=== PATIENT | male | born 1975 | race African-American/Black ===

== ENCOUNTER 2018-05-27 10:41 | Inpatient (IN) | payer MEDICAID ==
[~2018-05-27] VITALS: Ht 172.7 cm; Wt 64.4 kg
[2018-05-27] VITALS (18 sets, daily range): BP systolic 113–145; BP diastolic 65–95
[2018-05-27] MEDS ORDERED: ONDANSETRON HCL 4MG/2ML INJ IV STA (11:08)
[2018-05-27] MEDS ORDERED: SODIUM CHLORIDE 0.9% 1,000 ML IV ONE (11:08)
[2018-05-27] MEDS ORDERED: INSULIN REGULAR (HUMULIN R) UD 100 UNITS/ML SYR IV ONE (11:15)
[2018-05-27] MEDS ORDERED: INSULIN REGULAR (DRIP) 100 UNITS in SODIUM CHLORIDE 0.9% 100 ML IV ONE ×2 (11:15→11:45)
[2018-05-27 11:44] LABS: HEMATOCRIT. 51.9 % (42.0-52.0); HEMOGLOBIN. 16.7 g/dL (14.0-18.0); MEAN CORPUSCULAR HEMOGLOBIN 29.9 pg (28.0-32.0); MEAN CORPUSCULAR VOLUME 93.1 fL (80.0-94.0); MEAN PLATELET VOLUME 8.4 fl (7.4-10.4); PLATELET 290 x1000/uL (130-400); RED BLOOD CELL COUNT 5.57 mill/uL (4.7-6.1); RED CELL DISTRIBUTION WIDTH 15.9 % (11.6-14.6)
[2018-05-27] MEDS ORDERED: INSULIN REGULAR (HUMULIN R) 300UNITS/3ML IV ONE (11:45)
[2018-05-27 11:48] LABS: BG BASE EXCESS -22.1 mmol/L (-2.0-2.0); BG CARBOXYHEMOGLOBIN 0.6 % (0.5-1.5); BG DEOXYHEMOGLOBIN 2.1 % (0.0-5.0); BG FRACTION INSPIRED OXYGEN 21; BG HCO3 ACT 4.2 mmol/L (22.0-26.0); BG METHEMOGLOBIN 0.4 % (0.0-1.5); BG OXYGEN SATURATION 97.9 % (92.0-98.5); BG OXYHEMOGLOBIN 96.9 % (94.0-97.0); BG PCO2 12.7 mmHg (35.0-45.0); BG PH 7.141 (7.350-7.450); BG PO2 135.9 mmHg (75.0-100.0); BG SAMPLE SITE RIGHT RADIAL; BG TOTAL HEMOGLOBIN 15.6 g/dL (12.0-18.0); BG VENT MODE ROOM AIR
[2018-05-27 11:52] LABS: INR 1.1; PROTHROMBIN TIME 10.6 sec (9.1-11.1)
[2018-05-27 12:25] LABS: BETA HYDROXYBUTYRATE 12.3 mMol/L (0.0-0.3)
[2018-05-27 13:05] LABS: CLARITY URINE CLEAR (CLEAR); COLOR URINE YELLOW (YELLOW); KETONES URINE 4+ (NEGATIVE); LEUKOCYTE ESTERASE URINE NEGATIVE (NEGATIVE); NITRITE URINE NEGATIVE (NEGATIVE); OCCULT BLOOD URINE 2+ (NEGATIVE); PROTEIN URINE 1+ (NEGATIVE); SPECIFIC GRAVITY URINE 1.026 (1.005-1.030); UROBILINOGEN URINE 0.2 E.U./dL (0.2-1.0)
[2018-05-27 13:19] LABS: CHLORIDE 102 mEq/L (98-107)
[2018-05-27 13:54] LABS: PLATELET ESTIMATE NORMAL
[2018-05-27] MEDS: INSULIN REGULAR (DRIP) 100 UNITS in SODIUM CHLORIDE 0.9% 99 ML IV SCH ×2 (14:00→21:42)
[2018-05-27] MEDS ORDERED: DEXTROSE 50% WATER 50ML SYRINGE IV PRN ×2 (14:45)
[2018-05-27] MEDS ORDERED: ACETAMINOPHEN 650MG/20.3ML UDC PO PRN (14:45)
[2018-05-27] MEDS ORDERED: ONDANSETRON HCL 4MG/2ML INJ IV PRN (14:45)
[2018-05-27] MEDS: PANTOPRAZOLE SODIUM 40 MG/VIAL IV SCH (15:12)
[2018-05-27] MEDS: ENOXAPARIN 40MG/0.4ML SYR SUBCUT SCH (15:12)
[2018-05-27] MEDS: SODIUM CHLORIDE 0.9% 1,000 ML IV SCH ×2 (15:12→21:25)
[2018-05-27] MEDS ORDERED: MORPHINE SULFATE 4 MG/ML CPJ (NOT FOR IM USE) IV PRN (15:15)
[2018-05-27] MEDS: BLOOD SUGAR DIAGNOSTIC STRIP TEST SCH ×8 (16:00→23:00)
[2018-05-27] MEDS ORDERED: HYDROCODONE/ACETAMINOPHEN 5/325MG TABLET PO PRN (17:30)
[2018-05-27] MEDS: DEXT 5%/0.9% NACL 1,000 ML IV SCH ×2 (18:04→21:25)
[2018-05-27 19:56] LABS: CHLORIDE 113 mEq/L (98-107)
[2018-05-28] VITALS (26 sets, daily range): BP systolic 115–149; BP diastolic 63–119
[2018-05-28] MEDS: SODIUM CHLORIDE 0.9% 1,000 ML IV SCH ×2 (00:02→09:12)
[2018-05-28] MEDS: BLOOD SUGAR DIAGNOSTIC STRIP TEST SCH ×10 (00:21→09:00)
[2018-05-28] MEDS: DEXT 5%/0.9% NACL 1,000 ML IV SCH ×2 (04:05→06:29)
[2018-05-28 05:54] LABS: HEMATOCRIT 37.1 % (42.0-52.0); HEMOGLOBIN 12.3 g/dL (14.0-18.0); MEAN CORPUSCULAR HEMOGLOBIN 29.4 pg (28.0-32.0); MEAN CORPUSCULAR VOLUME 88.6 fL (80.0-94.0); PLATELET 173 x1000/uL (130-400); RED BLOOD CELL COUNT 4.19 mill/uL (4.7-6.1); RED CELL DISTRIBUTION WIDTH 14.9 % (11.6-14.6)
[2018-05-28 06:08] LABS: CHLORIDE 114 mEq/L (98-107)
[2018-05-28] MEDS: PANTOPRAZOLE SODIUM 40 MG/VIAL IV SCH (07:58)
[2018-05-28] MEDS: POTASSIUM-SODIUM PHOSPHATE POWDER PACKET PO SCH ×2 (09:11→12:41)
[2018-05-28] MEDS ORDERED: DEXTROSE 50% WATER 50ML SYRINGE IV PRN (09:30)
[2018-05-28] MEDS ORDERED: INSULIN GLARGINE UD 100 UNITS/ML SYR SUBCUT SCH (10:00)
[2018-05-28] MEDS ORDERED: BLOOD SUGAR DIAGNOSTIC STRIP TEST SCH (12:50)
[2018-05-28] MEDS ORDERED: INSULIN LISPRO 100 UNITS/ML SUBCUT SCH (13:20)
[2018-05-28] MEDS: ENOXAPARIN 40MG/0.4ML SYR SUBCUT SCH (14:40)
== END 2018-05-28 15:57 | disposition home or self-care (01) | DRG 420 ==
LOC: ER 10:41 → CVICU 12:31 → ENRESERV 13:08
PROVIDERS: ADMIT Hospitalist; ATTEND Hospitalist
DX: E10.10 Type 1 diabetes mellitus with ketoacidosis without coma (principal); F17.200 Nicotine dependence, unspecified, uncomplicated; R32 Unspecified urinary incontinence
CPT/HCPCS: 36415; 36600; 71045; 80048; 82010; 82375; 82805; 82962; 83735; 83880; 84100; 84484; 85027; 93005; 93970; 96374; 99285; C9113; J1650; J1815; J2405; J7030; J7042; J7050

== ENCOUNTER 2018-06-18 13:16 | Inpatient (IN) | payer MEDICAID ==
[~2018-06-18] VITALS: Ht 177.8 cm; Wt 66.7 kg
[2018-06-18] VITALS (7 sets, daily range): BP systolic 115–133; BP diastolic 66–84
[2018-06-18] MEDS ORDERED: SODIUM CHLORIDE 0.9% 1,000 ML IV ONE ×2 (13:40→13:58)
[2018-06-18] MEDS ORDERED: ONDANSETRON HCL 4MG/2ML INJ IV ONE (14:00)
[2018-06-18 14:08] LABS: BG BASE EXCESS -19.5 mmol/L (-2.0-2.0); BG CARBOXYHEMOGLOBIN 1.1 % (0.5-1.5); BG FRACTION INSPIRED OXYGEN 21; BG HCO3 ACT 4.4 mmol/L (22.0-26.0); BG METHEMOGLOBIN 0.2 % (0.0-1.5); BG OXYHEMOGLOBIN 96.7 % (94.0-97.0); BG PCO2 10.2 mmHg (35.0-45.0); BG PH 7.251 (7.350-7.450); BG PO2 127.5 mmHg (75.0-100.0); BG SAMPLE SITE LEFT BRACHIAL; BG TOTAL HEMOGLOBIN 15.2 g/dL (12.0-18.0); BG VENT MODE ROOM AIR
[2018-06-18 14:51] LABS: BASOPHILS % 0.4 % (0.0-2.0); EOSINOPHILS % 0.1 % (0.0-5.0); HEMATOCRIT. 51.1 % (42.0-52.0); HEMOGLOBIN. 16.2 g/dL (14.0-18.0); LYMPHOCYTES % 8.6 % (20.0-50.0); MEAN CORPUSCULAR VOLUME 94.6 fL (80.0-94.0); MEAN PLATELET VOLUME 8.1 fl (7.4-10.4); MONOCYTES % 7.6 % (2.0-8.0); NEUTROPHILS % 83.3 % (40.0-76.0); PLATELET 391 x1000/uL (130-400)
[2018-06-18] MEDS ORDERED: SODIUM CHLORIDE 0.9% 1000ML BAG (SEPSIS BOLUS) IV ONE (15:15)
[2018-06-18 15:27] LABS: CLARITY URINE CLEAR (CLEAR); COLOR URINE YELLOW (YELLOW); KETONES URINE 4+ (NEGATIVE); LEUKOCYTE ESTERASE URINE NEGATIVE (NEGATIVE); NITRITE URINE NEGATIVE (NEGATIVE); OCCULT BLOOD URINE TRACE (NEGATIVE); PROTEIN URINE 1+ (NEGATIVE); SPECIFIC GRAVITY URINE 1.022 (1.005-1.030); UROBILINOGEN URINE 0.2 E.U./dL (0.2-1.0)
[2018-06-18] MEDS ORDERED: INSULIN REGULAR (DRIP) 100 UNITS in SODIUM CHLORIDE 0.9% 100 ML IV ONE ×2 (15:30→15:45)
[2018-06-18 16:28] LABS: CHLORIDE 84 mEq/L (98-107)
[2018-06-18 16:36] LABS: PHOSPHORUS 5.9 mg/dL (2.5-4.9)
[2018-06-18] MEDS ORDERED: SODIUM CHLORIDE 0.9% 1,000 ML IV STA (16:43)
[2018-06-18 17:15] LABS: BETA HYDROXYBUTYRATE 11.9 mMol/L (0.0-0.3)
[2018-06-18] MEDS ORDERED: CLONIDINE 0.1MG TABLET PO PRN (18:45)
[2018-06-18] MEDS ORDERED: HYDROMORPHONE HCL/PF 2MG/ML CPJ IV PRN (18:45)
[2018-06-18] MEDS ORDERED: DIPHENHYDRAMINE 50MG/ML VIAL IV PRN (18:45)
[2018-06-18] MEDS ORDERED: ONDANSETRON HCL 4MG/2ML INJ IV PRN (18:45)
[2018-06-18] MEDS ORDERED: HYDROCODONE/ACETAMINOPHEN 5/325MG TABLET PO PRN (18:45)
[2018-06-18] MEDS ORDERED: ACETAMINOPHEN 325MG TABLET PO PRN (18:45)
[2018-06-18] MEDS ORDERED: INSULIN REGULAR (DRIP) 100 UNITS in SODIUM CHLORIDE 0.9% 100 ML IV SCH (18:45)
[2018-06-18] MEDS ORDERED: DEXTROSE 50% WATER 50ML SYRINGE IV PRN ×2 (19:00)
[2018-06-18 19:52] LABS: CHLORIDE 95 mEq/L (98-107)
[2018-06-18] MEDS: BLOOD SUGAR DIAGNOSTIC STRIP TEST SCH ×4 (20:13→23:03)
[2018-06-18] MEDS: SODIUM CHLORIDE 0.9% 1,000 ML IV SCH (20:27)
[2018-06-18] MEDS: INSULIN REGULAR (DRIP) 100 UNITS in SODIUM CHLORIDE 0.9% 99 ML IV SCH ×4 (20:32→23:04)
[2018-06-19] VITALS (24 sets, daily range): BP systolic 99–154; BP diastolic 54–76
[2018-06-19] MEDS: BLOOD SUGAR DIAGNOSTIC STRIP TEST SCH ×24 (00:20→23:21)
[2018-06-19] MEDS: SODIUM CHLORIDE 0.9% 1,000 ML IV SCH ×2 (04:54→17:57)
[2018-06-19 05:58] LABS: HEMATOCRIT. 38.5 % (42.0-52.0); MEAN CORPUSCULAR HEMOGLOBIN 29.9 pg (28.0-32.0); MEAN CORPUSCULAR VOLUME 88.8 fL (80.0-94.0); MEAN PLATELET VOLUME 7.1 fl (7.4-10.4); PLATELET 259 x1000/uL (130-400); RED BLOOD CELL COUNT 4.33 mill/uL (4.7-6.1); RED CELL DISTRIBUTION WIDTH 14.9 % (11.6-14.6)
[2018-06-19 06:03] LABS: CHLORIDE 100 mEq/L (98-107)
[2018-06-19 06:23] LABS: BETA HYDROXYBUTYRATE 4.5 mMol/L (0.0-0.3)
[2018-06-19] MEDS: PANTOPRAZOLE SODIUM 40 MG/VIAL IV SCH (09:27)
[2018-06-19 10:23] LABS: PLATELET ESTIMATE NORMAL
[2018-06-19] MEDS: INSULIN REGULAR (DRIP) 100 UNITS in SODIUM CHLORIDE 0.9% 99 ML IV SCH (17:59)
[2018-06-19 20:17] LABS: CHLORIDE 106 mEq/L (98-107)
[2018-06-20] VITALS (18 sets, daily range): BP systolic 17–139; BP diastolic 53–128
[2018-06-20] MEDS: SODIUM CHLORIDE 0.9% 1,000 ML IV SCH ×2 (00:35→11:49)
[2018-06-20] MEDS: BLOOD SUGAR DIAGNOSTIC STRIP TEST SCH ×15 (00:35→14:00)
[2018-06-20] MEDS: PANTOPRAZOLE SODIUM 40 MG/VIAL IV SCH (09:04)
[2018-06-20] MEDS ORDERED: DEXTROSE 50% WATER 50ML SYRINGE IV PRN (11:15)
[2018-06-20] MEDS ORDERED: INSULIN GLARGINE UD 100 UNITS/ML SYR SUBCUT SCH (12:00)
[2018-06-20] MEDS ORDERED: BLOOD SUGAR DIAGNOSTIC STRIP TEST SCH (12:50)
[2018-06-20] MEDS ORDERED: INSULIN LISPRO 100 UNITS/ML SUBCUT SCH ×2 (12:50→13:20)
[2018-06-21] MEDS ORDERED: INSULIN GLARGINE UD 100 UNITS/ML SYR SUBCUT SCH (10:00)
== END 2018-06-20 16:55 | disposition home or self-care (01) | DRG 420 ==
LOC: ER 13:16 → CVICU 14:19 → ENRESERV 14:19 → EDBEDREQ 16:49 → CVICU 20:05
PROVIDERS: ADMIT Hospitalist; ATTEND Hospitalist
DX: E11.10 Type 2 diabetes mellitus with ketoacidosis without coma (principal); I95.9 Hypotension, unspecified; E87.2 Acidosis; E87.8 Other disorders of electrolyte and fluid balance, not elsewhere classified; E83.51 Hypocalcemia; E87.1 Hypo-osmolality and hyponatremia; F17.200 Nicotine dependence, unspecified, uncomplicated; I10 Essential (primary) hypertension; Z79.4 Long term (current) use of insulin; E87.6 Hypokalemia
CPT/HCPCS: 36415; 36600; 71045; 80048; 82010; 82375; 82805; 82962; 83605; 83735; 84100; 93005; 96365; 96375; 99291; C9113; J1815; J2405; J7030; J7050

== ENCOUNTER 2018-09-20 08:42 | Inpatient (IN) | payer MEDICAID ==
[~2018-09-20] VITALS: Ht 180.3 cm; Wt 65.8 kg
[2018-09-20] MEDS ORDERED: SODIUM CHLORIDE 0.9% 1,000 ML IV ONE ×2 (10:12→11:24)
[2018-09-20 10:43] LABS: BG BASE EXCESS -20.7 mmol/L (-2.0-2.0); BG CARBOXYHEMOGLOBIN 0.3 % (0.5-1.5); BG FRACTION INSPIRED OXYGEN 21; BG HCO3 ACT 4.5 mmol/L (22.0-26.0); BG METHEMOGLOBIN 0.5 % (0.0-1.5); BG OXYHEMOGLOBIN 97.2 % (94.0-97.0); BG PCO2 12.4 mmHg (35.0-45.0); BG PH 7.174 (7.350-7.450); BG PO2 136.9 mmHg (75.0-100.0); BG SAMPLE SITE RIGHT BRACHIAL; BG TOTAL HEMOGLOBIN 18.9 g/dL (12.0-18.0); BG VENT MODE ROOM AIR
[2018-09-20 10:58] LABS: CHLORIDE 82 mEq/L (98-107)
[2018-09-20 11:00] LABS: HEMATOCRIT. 55.4 % (42.0-52.0); HEMOGLOBIN. 17.9 g/dL (14.0-18.0); MEAN CORPUSCULAR HEMOGLOBIN 31.1 pg (28.0-32.0); MEAN CORPUSCULAR VOLUME 95.9 fL (80.0-94.0); MEAN PLATELET VOLUME 8.6 fl (7.4-10.4); PLATELET 362 x1000/uL (130-400); RED BLOOD CELL COUNT 5.77 mill/uL (4.7-6.1)
[2018-09-20] MEDS ORDERED: ONDANSETRON HCL 4MG/2ML INJ IV ONE (11:00)
[2018-09-20] MEDS ORDERED: KETOROLAC 30MG/ML VIAL IV ONE (11:00)
[2018-09-20 11:25] LABS: PLATELET ESTIMATE NORMAL
[2018-09-20] MEDS ORDERED: INSULIN REGULAR (DRIP) 100 UNITS in SODIUM CHLORIDE 0.9% 99 ML IV SCH (11:30)
[2018-09-20 11:42] LABS: BETA HYDROXYBUTYRATE 14.2 mMol/L (0.0-0.3)
[2018-09-20] MEDS ORDERED: PIPERACILLIN/TAZ 3.375G PREMIX 50 ML IV ONE (11:45)
[2018-09-20] MEDS ORDERED: VANCOMYCIN 1 G PREMIX 200 ML IV ONE (11:45)
[2018-09-20] MEDS ORDERED: ONDANSETRON HCL 4MG/2ML INJ IV PRN (17:30)
[2018-09-20] MEDS ORDERED: DIPHENHYDRAMINE 50MG/ML VIAL IV PRN (17:30)
[2018-09-20] MEDS ORDERED: INSULIN REGULAR (DRIP) 100 UNITS in SODIUM CHLORIDE 0.9% 100 ML IV ONE (17:30)
[2018-09-20] MEDS ORDERED: KETOROLAC 30MG/ML VIAL IV PRN (17:30)
[2018-09-20] MEDS: SODIUM CHLORIDE 0.9% 1,000 ML IV SCH (20:27)
[2018-09-20] MEDS ORDERED: FAMOTIDINE 20MG/2ML VIAL IV SCH (21:00)
[2018-09-20 21:45] LABS: CHLORIDE 98 mEq/L (98-107)
[2018-09-21] VITALS (30 sets, daily range): BP systolic 105–130; BP diastolic 66–85
[2018-09-21 06:17] LABS: HEMATOCRIT. 42.1 % (42.0-52.0); HEMOGLOBIN. 14.5 g/dL (14.0-18.0); MEAN CORPUSCULAR HEMOGLOBIN 30.9 pg (28.0-32.0); MEAN CORPUSCULAR VOLUME 89.6 fL (80.0-94.0); MEAN PLATELET VOLUME 7.9 fl (7.4-10.4); PLATELET 203 x1000/uL (130-400); RED BLOOD CELL COUNT 4.69 mill/uL (4.7-6.1); RED CELL DISTRIBUTION WIDTH 13.7 % (11.6-14.6)
[2018-09-21 06:21] LABS: CHLORIDE 103 mEq/L (98-107)
[2018-09-21 06:27] LABS: PHOSPHORUS 2.4 mg/dL (2.5-4.9)
[2018-09-21] MEDS ORDERED: INSULIN REGULAR (DRIP) 100 UNITS in SODIUM CHLORIDE 0.9% 100 ML IV SCH (06:49)
[2018-09-21 07:00] LABS: PLATELET ESTIMATE NORMAL
[2018-09-21] MEDS ORDERED: DEXTROSE 50% WATER 50ML SYRINGE IV PRN ×3 (07:00→13:30)
[2018-09-21] MEDS: BLOOD SUGAR DIAGNOSTIC STRIP TEST SCH ×11 (07:42→21:03)
[2018-09-21] MEDS: SODIUM CHLORIDE 0.9% 1,000 ML IV SCH ×2 (08:00→12:38)
[2018-09-21] MEDS ORDERED: POTASSIUM PHOS,M-BASIC-D-BASIC 15 MMOL in DEXT 5% WATER 250 ML IV SCH (11:00)
[2018-09-21] MEDS ORDERED: SODIUM CHLORIDE 0.9% 1,000 ML IV SCH (13:16)
[2018-09-21] MEDS: INSULIN LISPRO 100 UNITS/ML SUBCUT SCH ×3 (13:20→21:00)
[2018-09-21 13:25] LABS: CHLORIDE 106 mEq/L (98-107)
[2018-09-21] MEDS: INSULIN GLARGINE UD 100 UNITS/ML SYR SUBCUT SCH (14:29)
[2018-09-21] MEDS: OMEPRAZOLE 20MG CAPSULE EXTENDED RELEASE PO SCH ×2 (14:31→20:59)
[2018-09-21 19:46] LABS: CHLORIDE 104 mEq/L (98-107)
[2018-09-22] VITALS: BP 110/67
[2018-09-22] MEDS: BLOOD SUGAR DIAGNOSTIC STRIP TEST SCH ×3 (06:26→17:20)
[2018-09-22] MEDS: OMEPRAZOLE 20MG CAPSULE EXTENDED RELEASE PO SCH (06:26)
[2018-09-22 06:32] LABS: BASOPHILS % 0.6 % (0.0-2.0); EOSINOPHILS % 0.8 % (0.0-5.0); HEMATOCRIT. 39.2 % (42.0-52.0); HEMOGLOBIN. 13.2 g/dL (14.0-18.0); LYMPHOCYTES % 20.9 % (20.0-50.0); MEAN CORPUSCULAR HEMOGLOBIN 30.8 pg (28.0-32.0); MEAN CORPUSCULAR VOLUME 91.1 fL (80.0-94.0); MEAN PLATELET VOLUME 7.6 fl (7.4-10.4); MONOCYTES % 9.1 % (2.0-8.0); NEUTROPHILS % 68.6 % (40.0-76.0); PLATELET 191 x1000/uL (130-400); RED BLOOD CELL COUNT 4.31 mill/uL (4.7-6.1); RED CELL DISTRIBUTION WIDTH 14.1 % (11.6-14.6)
[2018-09-22 07:34] LABS: CHLORIDE 109 mEq/L (98-107)
[2018-09-22 07:40] LABS: PHOSPHORUS 1.9 mg/dL (2.5-4.9)
[2018-09-22 08:00] VITALS: BP 130/79
[2018-09-22] MEDS: INSULIN LISPRO 100 UNITS/ML SUBCUT SCH ×3 (08:53→17:50)
[2018-09-22] MEDS: INSULIN GLARGINE UD 100 UNITS/ML SYR SUBCUT SCH (09:25)
[2018-09-22 12:00] VITALS: BP 118/84
[2018-09-22 16:00] VITALS: BP 129/87
[2018-09-22] MEDS ORDERED: POTASSIUM PHOS,M-BASIC-D-BASIC 10 MMOL in DEXT 5% WATER 246.6667 ML IV SCH (16:30)
[2018-09-22 20:32] VITALS: BP 124/87
== END 2018-09-22 21:00 | disposition home or self-care (01) | DRG 469 ==
LOC: ER 08:42 → CVICU 18:31 → EDBEDREQTM 18:35 → EDBEDREQ 18:35 → ENRESERV 09-21 05:57 → 6EST 09-21 21:47
PROVIDERS: ADMIT Internal Medicine; ATTEND Internal Medicine
DX: N17.9 Acute kidney failure, unspecified (principal); G93.41 Metabolic encephalopathy; E11.10 Type 2 diabetes mellitus with ketoacidosis without coma; I11.0 Hypertensive heart disease with heart failure; R65.10 Systemic inflammatory response syndrome (SIRS) of non-infectious origin without acute organ dysfunction; I50.9 Heart failure, unspecified; E86.0 Dehydration; Z79.4 Long term (current) use of insulin; F17.210 Nicotine dependence, cigarettes, uncomplicated
CPT/HCPCS: 36415; 36600; 71045; 80048; 82010; 82375; 82805; 82962; 83735; 84100; 84484; 93005; 96365; 96366; 96375; 99291; J1815; J1885; J2405; J2543; J3370; J3490; J7030; J7050; J7060

== ENCOUNTER 2018-11-12 20:38 | Inpatient (IN) | payer MEDICAID ==
[~2018-11-12] VITALS: Ht 180.3 cm; Wt 59.9 kg
[2018-11-12] MEDS ORDERED: SODIUM CHLORIDE 0.9% 1,000 ML IV ONE ×3 (22:49→23:45)
[2018-11-12 23:05] LABS: BASOPHILS % 0.7 % (0.0-2.0); CLARITY URINE CLEAR (CLEAR); COLOR URINE YELLOW (YELLOW); EOSINOPHILS % 0.6 % (0.0-5.0); HEMATOCRIT. 44.2 % (42.0-52.0); HEMOGLOBIN. 15.1 g/dL (14.0-18.0); KETONES URINE 1+ (NEGATIVE); LEUKOCYTE ESTERASE URINE NEGATIVE (NEGATIVE); LYMPHOCYTES % 33.1 % (20.0-50.0); MEAN CORPUSCULAR HEMOGLOBIN 32.2 pg (28.0-32.0); MEAN CORPUSCULAR VOLUME 94.1 fL (80.0-94.0); MONOCYTES % 9.7 % (2.0-8.0); NEUTROPHILS % 55.9 % (40.0-76.0); NITRITE URINE NEGATIVE (NEGATIVE); OCCULT BLOOD URINE NEGATIVE (NEGATIVE); PLATELET 304 x1000/uL (130-400); PROTEIN URINE NEGATIVE (NEGATIVE); RED CELL DISTRIBUTION WIDTH 14.3 % (11.6-14.6); SPECIFIC GRAVITY URINE 1.031 (1.005-1.030); UROBILINOGEN URINE 0.2 E.U./dL (0.2-1.0)
[2018-11-12 23:09] LABS: CHLORIDE 87 mEq/L (98-107)
[2018-11-12 23:16] LABS: BETA HYDROXYBUTYRATE 3.7 mMol/L (0.0-0.3)
[2018-11-12] MEDS ORDERED: INSULIN REGULAR (HUMULIN R) 300UNITS/3ML SUBCUT ONE (23:45)
[2018-11-12] MEDS ORDERED: INSULIN REGULAR (HUMULIN R) UD 100 UNITS/ML SYR IV ONE (23:45)
[2018-11-12] MEDS ORDERED: POTASSIUM CHLORIDE 20MEQ TABLET SR PO ONE (23:45)
[2018-11-13] MEDS ORDERED: MAGNESIUM/ALUMINUM HYDROXIDE/SIMETHICONE 30ML UDC PO PRN (01:00)
[2018-11-13] MEDS ORDERED: CLONIDINE 0.1MG TABLET PO PRN (01:00)
[2018-11-13] MEDS ORDERED: ONDANSETRON HCL 4MG/2ML INJ IV PRN (01:00)
[2018-11-13] MEDS ORDERED: ACETAMINOPHEN 325MG TABLET PO PRN (01:00)
[2018-11-13] MEDS ORDERED: DIPHENHYDRAMINE 50MG/ML VIAL IV PRN (01:00)
[2018-11-13 03:15] VITALS: BP 115/73
[2018-11-13] MEDS ORDERED: DEXTROSE 50% WATER 50ML SYRINGE IV PRN (03:51)
[2018-11-13 04:00] VITALS: BP 115/73
[2018-11-13] MEDS ORDERED: INSULIN GLARGINE UD 100 UNITS/ML SYR SUBCUT SCH ×2 (04:00→23:00)
[2018-11-13] MEDS: SODIUM CHLORIDE 0.9% 1,000 ML IV SCH ×4 (05:08→18:49)
[2018-11-13] MEDS ORDERED: INSU100I28 SQ (05:23)
[2018-11-13] MEDS: OMEPRAZOLE 20MG CAPSULE EXTENDED RELEASE PO SCH ×2 (06:23→22:06)
[2018-11-13] MEDS: BLOOD SUGAR DIAGNOSTIC STRIP TEST SCH ×4 (06:27→21:00)
[2018-11-13 07:54] VITALS: BP 116/72
[2018-11-13] MEDS: INSULIN LISPRO 100 UNITS/ML SUBCUT SCH ×4 (08:17→22:06)
[2018-11-13 09:32] LABS: CHLORIDE 108 mEq/L (98-107)
[2018-11-13 11:54] VITALS: BP 102/60
[2018-11-13 16:00] VITALS: BP 111/72
[2018-11-13 20:00] VITALS: BP 98/59
[2018-11-14] VITALS: BP 106/69
[2018-11-14] MEDS: SODIUM CHLORIDE 0.9% 1,000 ML IV SCH ×3 (00:15→10:09)
[2018-11-14 04:00] VITALS: BP 115/72
[2018-11-14] MEDS: BLOOD SUGAR DIAGNOSTIC STRIP TEST SCH (06:15)
[2018-11-14] MEDS: OMEPRAZOLE 20MG CAPSULE EXTENDED RELEASE PO SCH (06:15)
[2018-11-14] MEDS: INSULIN LISPRO 100 UNITS/ML SUBCUT SCH (06:38)
[2018-11-14 08:00] VITALS: BP 116/87
[2018-11-14 11:49] VITALS: BP 122/87
[2018-11-14 16:00] VITALS: BP 110/76
[2018-11-14 17:07] VITALS: BP 110/76
== END 2018-11-14 17:50 | disposition home or self-care (01) | DRG 420 ==
LOC: ER 20:38 → 6EST 23:47 → ENRESERV 11-13 00:03
PROVIDERS: ADMIT Internal Medicine; ATTEND Internal Medicine
DX: E11.00 Type 2 diabetes mellitus with hyperosmolarity without nonketotic hyperglycemic-hyperosmolar coma (NKHHC) (principal); E11.65 Type 2 diabetes mellitus with hyperglycemia; E87.1 Hypo-osmolality and hyponatremia; E86.0 Dehydration; F17.210 Nicotine dependence, cigarettes, uncomplicated; I10 Essential (primary) hypertension; Z71.6 Tobacco abuse counseling
CPT/HCPCS: 36415; 80048; 82010; 82962; 96361; 96372; 96374; 99285; 99406; J1815; J7030

== ENCOUNTER 2018-11-25 15:37 | Inpatient (IN) | payer MEDICAID ==
[~2018-11-25] VITALS: Ht 175.3 cm; Wt 57.6 kg
[~2018-11-25 15:37] MED LIST: INSU100I28 SQ
[2018-11-25 17:12] LABS: INR 0.9; PARTIAL THROMBOPLASTIN TIME 21.8 sec (23.4-31.0); PROTHROMBIN TIME 9.7 sec (9.6-11.0)
[2018-11-25 17:13] LABS: BG BASE EXCESS -0.8 mmol/L (-2.0-2.0); BG CARBOXYHEMOGLOBIN 2.5 % (0.5-1.5); BG DEOXYHEMOGLOBIN 5.7 % (0.0-5.0); BG FRACTION INSPIRED OXYGEN 21; BG HCO3 ACT 24.1 mmol/L (22.0-26.0); BG OXYGEN SATURATION 94.2 % (92.0-98.5); BG OXYHEMOGLOBIN 91.8 % (94.0-97.0); BG PCO2 40.8 mmHg (35.0-45.0); BG PH 7.389 (7.350-7.450); BG PO2 73.7 mmHg (75.0-100.0); BG SAMPLE SITE RIGHT BRACHIAL; BG TOTAL HEMOGLOBIN 13.6 g/dL (12.0-18.0); BG VENT MODE ROOM AIR
[2018-11-25 17:16] LABS: CLARITY URINE CLEAR (CLEAR); COLOR URINE YELLOW (YELLOW); KETONES URINE NEGATIVE (NEGATIVE); LEUKOCYTE ESTERASE URINE NEGATIVE (NEGATIVE); NITRITE URINE NEGATIVE (NEGATIVE); OCCULT BLOOD URINE NEGATIVE (NEGATIVE); PH URINE 6.5 (4.5-8.0); PROTEIN URINE NEGATIVE (NEGATIVE); SPECIFIC GRAVITY URINE 1.034 (1.005-1.030); UROBILINOGEN URINE 0.2 E.U./dL (0.2-1.0)
[2018-11-25] MEDS ORDERED: SODIUM CHLORIDE 0.9% 1,000 ML IV ONE ×2 (17:17→17:38)
[2018-11-25 17:27] LABS: CHLORIDE 95 mEq/L (98-107)
[2018-11-25] MEDS ORDERED: INSULIN REGULAR (HUMULIN R) 300UNITS/3ML IV ONE (17:45)
[2018-11-25 18:41] LABS: BASOPHILS % 0.2 % (0.0-2.0); EOSINOPHILS % 0.4 % (0.0-5.0); HEMATOCRIT. 41.7 % (42.0-52.0); HEMOGLOBIN. 13.9 g/dL (14.0-18.0); LYMPHOCYTES % 15.5 % (20.0-50.0); MEAN CORPUSCULAR HEMOGLOBIN 31.2 pg (28.0-32.0); MEAN CORPUSCULAR VOLUME 93.8 fL (80.0-94.0); MEAN PLATELET VOLUME 7.4 fl (7.4-10.4); MONOCYTES % 8.5 % (2.0-8.0); NEUTROPHILS % 75.4 % (40.0-76.0); PLATELET 235 x1000/uL (130-400); RED BLOOD CELL COUNT 4.45 mill/uL (4.7-6.1); RED CELL DISTRIBUTION WIDTH 14.2 % (11.6-14.6)
[2018-11-25] MEDS ORDERED: SODIUM CHLORIDE 0.9% 1,000 ML IV SCH (19:02)
[2018-11-25] MEDS ORDERED: GUAIFENESIN 200MG/10ML SUGAR FREE UDC PO PRN (19:15)
[2018-11-25] MEDS ORDERED: ACETAMINOPHEN 325MG TABLET PO PRN (19:15)
[2018-11-25] MEDS ORDERED: ONDANSETRON HCL 4MG/2ML INJ IV PRN (19:15)
[2018-11-25] MEDS ORDERED: DOCUSATE SODIUM 100MG CAPSULE PO PRN (19:15)
[2018-11-25] MEDS ORDERED: LORAZEPAM 0.5MG TABLET PO PRN (19:15)
[2018-11-25] MEDS ORDERED: KETOROLAC 15MG/ML VIAL IV PRN (19:15)
[2018-11-25] MEDS ORDERED: IPRATROPIUM/ALBUTEROL 0.5-3(2.5)MG/3ML NEB INH PRN (19:15)
[2018-11-25] MEDS ORDERED: CLONIDINE 0.1MG TABLET PO PRN (19:15)
[2018-11-25] MEDS ORDERED: NITROGLYCERIN 0.4MG TABLET SL SL PRN (19:15)
[2018-11-25] MEDS ORDERED: DEXTROSE 50% WATER 50ML SYRINGE IV PRN (19:15)
[2018-11-25] MEDS ORDERED: MAGNESIUM/ALUMINUM HYDROXIDE/SIMETHICONE 30ML UDC PO PRN (19:15)
[2018-11-25] MEDS ORDERED: FAMOTIDINE 20MG TABLET PO NR (20:30)
[2018-11-25] MEDS ORDERED: ENOXAPARIN 40MG/0.4ML SYR SUBCUT NR (20:30)
[2018-11-25] MEDS ORDERED: INSULIN LISPRO 100 UNITS/ML SUBCUT SCH (21:00)
[2018-11-25] MEDS ORDERED: BLOOD SUGAR DIAGNOSTIC STRIP TEST SCH (21:00)
[2018-11-25] MEDS ORDERED: ZOLPIDEM TARTRATE 5MG TABLET PO PRN (21:00)
[2018-11-25] MEDS ORDERED: INSULIN GLARGINE UD 100 UNITS/ML SYR SUBCUT NR (22:28)
[2018-11-26] MEDS ORDERED: INSULIN LISPRO 100 UNITS/ML SUBCUT SCH (07:50)
[2018-11-26 08:58] LABS: *AMPHETAMINES SCREEN URINE NEGATIVE (NEGATIVE); *BARBITURATES SCREEN URINE NEGATIVE (NEGATIVE); *BENZODIAZEPINES SCREEN URINE NEGATIVE (NEGATIVE); *COCAINE SCREEN URINE NEGATIVE (NEGATIVE); CANNABINOID URINE SCREEN PRESUMTIVE POSITIVE (NEGATIVE); METHADONE URINE SCREEN NEGATIVE (NEGATIVE); OPIATES URINE SCREEN NEGATIVE (NEGATIVE); PHENCYCLIDINE URINE SCREEN PRESUMTIVE POSITIVE (NEGATIVE)
[2018-11-26] MEDS ORDERED: ENOXAPARIN 40MG/0.4ML SYR SUBCUT SCH (09:00)
[2018-11-26] MEDS ORDERED: FAMOTIDINE 20MG TABLET PO SCH (09:00)
[2018-11-26 09:26] VITALS: BP 108/77
[2018-11-26 10:24] VITALS: BP 108/77
[2018-11-26] MEDS ORDERED: INSULIN GLARGINE UD 100 UNITS/ML SYR SUBCUT SCH (22:00)
== END 2018-11-26 11:15 | disposition home or self-care (01) | DRG 420 ==
LOC: ER 15:37 → 8WST 18:40 → EDBEDREQ 19:00 → EDBEDREQSVC 19:00 → ENRESERV 11-26 07:22
PROVIDERS: ADMIT Internal Medicine; ATTEND Internal Medicine
DX: E11.65 Type 2 diabetes mellitus with hyperglycemia (principal); E87.1 Hypo-osmolality and hyponatremia; D63.8 Anemia in other chronic diseases classified elsewhere; Z79.4 Long term (current) use of insulin; F12.10 Cannabis abuse, uncomplicated; F16.10 Hallucinogen abuse, uncomplicated
CPT/HCPCS: 36415; 36600; 71045; 80061; 80305; 82010; 82375; 82805; 82962; 83036; 83880; 84484; 93005; 96374; 99285; J1650; J1815; J7030

== ENCOUNTER 2019-01-28 16:51 | Emergency (ER) | payer MEDICAID ==
[~2019-01-28] VITALS: Ht 180.3 cm; Wt 75.0 kg
[2019-01-28] MEDS ORDERED: ONDANSETRON HCL 4MG/2ML INJ IV STA (17:28)
[2019-01-28] MEDS ORDERED: SODIUM CHLORIDE 0.9% 1,000 ML IV ONE ×2 (17:28→19:29)
[2019-01-28] MEDS ORDERED: MORPHINE SULFATE 4 MG/ML CPJ (NOT FOR IM USE) IV STA (17:28)
[2019-01-28 18:01] LABS: BASOPHILS % 0.9 % (0.0-2.0); EOSINOPHILS % 1.2 % (0.0-5.0); HEMATOCRIT. 38.4 % (42.0-52.0); HEMOGLOBIN. 12.7 g/dL (14.0-18.0); LYMPHOCYTES % 30.8 % (20.0-50.0); MEAN CORPUSCULAR VOLUME 96.7 fL (80.0-94.0); MEAN PLATELET VOLUME 6.8 fl (7.4-10.4); MONOCYTES % 9.1 % (2.0-8.0); PLATELET 312 x1000/uL (130-400); RED BLOOD CELL COUNT 3.97 mill/uL (4.7-6.1); RED CELL DISTRIBUTION WIDTH 13.6 % (11.6-14.6)
[2019-01-28 18:02] LABS: CHLORIDE 94 mEq/L (98-107)
[2019-01-28 18:03] LABS: PARTIAL THROMBOPLASTIN TIME 26.4 sec (23.4-31.0); PROTHROMBIN TIME 10.5 sec (9.6-11.0)
[2019-01-28 18:05] LABS: ETHANOL BLOOD < 10 mg/dL
[2019-01-28 18:13] LABS: BETA HYDROXYBUTYRATE 0.3 mMol/L (0.0-0.3)
[2019-01-28] MEDS ORDERED: INSULIN REGULAR (HUMULIN R) 300UNITS/3ML SUBCUT ONE (18:30)
[2019-01-28] MEDS ORDERED: INSULIN REGULAR (HUMULIN R) 300UNITS/3ML IV ONE (18:30)
[2019-01-28 18:47] LABS: CLARITY URINE CLEAR (CLEAR); COLOR URINE YELLOW (YELLOW); KETONES URINE NEGATIVE (NEGATIVE); LEUKOCYTE ESTERASE URINE NEGATIVE (NEGATIVE); NITRITE URINE NEGATIVE (NEGATIVE); OCCULT BLOOD URINE NEGATIVE (NEGATIVE); PROTEIN URINE NEGATIVE (NEGATIVE); UROBILINOGEN URINE 0.2 E.U./dL (0.2-1.0)
[2019-01-28 19:14] LABS: *AMPHETAMINES SCREEN URINE NEGATIVE (NEGATIVE); *BARBITURATES SCREEN URINE NEGATIVE (NEGATIVE); *BENZODIAZEPINES SCREEN URINE NEGATIVE (NEGATIVE); *COCAINE SCREEN URINE NEGATIVE (NEGATIVE); CANNABINOID URINE SCREEN NEGATIVE (NEGATIVE); METHADONE URINE SCREEN NEGATIVE (NEGATIVE); OPIATES URINE SCREEN NEGATIVE (NEGATIVE); PHENCYCLIDINE URINE SCREEN PRESUMTIVE POSITIVE (NEGATIVE)
[2019-01-28] MEDS ORDERED: LORAZEPAM 2MG/ML CPJ IV ONE (19:30)
[2019-01-29 03:16] VITALS: BP 113/81
== END 2019-01-29 03:18 | disposition home or self-care (01) ==
LOC: ER 16:51 → CANBEDREQ 01-29 03:45
DX: E11.65 Type 2 diabetes mellitus with hyperglycemia (principal); E86.0 Dehydration; T40.991A Poisoning by other psychodysleptics [hallucinogens], accidental (unintentional), initial encounter; Y92.89 Other specified places as the place of occurrence of the external cause
CPT/HCPCS: 36415; 70450; 71045; 80053; 80305; 80320; 81003; 82010; 82962; 83605; 83690; 83880; 84484; 85025; 85610; 85730; 87040; 87086; 93005; 96361; 96372; 96374; 96375; 99284; J1815; J2060; J2270; J2405; J7030; G0480

== ENCOUNTER 2019-02-21 04:19 | Emergency (ER) | payer MEDICAID ==
[~2019-02-21] VITALS: Ht 172.7 cm; Wt 73.0 kg
[2019-02-21] MEDS ORDERED: SODIUM CHLORIDE 0.9% 1,000 ML IV ONE (07:30)
[2019-02-21 08:03] LABS: BASOPHILS % 0.4 % (0.0-2.0); HEMATOCRIT. 39.4 % (42.0-52.0); HEMOGLOBIN. 13.4 g/dL (14.0-18.0); LYMPHOCYTES % 24.2 % (20.0-50.0); MEAN CORPUSCULAR HEMOGLOBIN 32.2 pg (28.0-32.0); MEAN CORPUSCULAR VOLUME 94.5 fL (80.0-94.0); MEAN PLATELET VOLUME 7.5 fl (7.4-10.4); MONOCYTES % 7.8 % (2.0-8.0); NEUTROPHILS % 66.6 % (40.0-76.0); PLATELET 335 x1000/uL (130-400); RED BLOOD CELL COUNT 4.17 mill/uL (4.7-6.1); RED CELL DISTRIBUTION WIDTH 13.7 % (11.6-14.6)
[2019-02-21 08:06] LABS: CHLORIDE 106 mEq/L (98-107)
[2019-02-21 08:09] LABS: ETHANOL BLOOD < 10 mg/dL
[2019-02-21 08:35] VITALS: BP 133/70
[2019-02-21 08:38] LABS: CLARITY URINE CLEAR (CLEAR); COLOR URINE YELLOW (YELLOW); KETONES URINE TRACE (NEGATIVE); LEUKOCYTE ESTERASE URINE NEGATIVE (NEGATIVE); NITRITE URINE NEGATIVE (NEGATIVE); OCCULT BLOOD URINE NEGATIVE (NEGATIVE); PH URINE 5.5 (4.5-8.0); PROTEIN URINE NEGATIVE (NEGATIVE); SPECIFIC GRAVITY URINE 1.034 (1.005-1.030)
[2019-02-21 09:10] LABS: *AMPHETAMINES SCREEN URINE NEGATIVE (NEGATIVE); *BARBITURATES SCREEN URINE NEGATIVE (NEGATIVE); *BENZODIAZEPINES SCREEN URINE NEGATIVE (NEGATIVE); *COCAINE SCREEN URINE NEGATIVE (NEGATIVE); METHADONE URINE SCREEN NEGATIVE (NEGATIVE); OPIATES URINE SCREEN NEGATIVE (NEGATIVE)
[2019-02-21 09:11] LABS: CANNABINOID URINE SCREEN PRESUMTIVE POSITIVE (NEGATIVE); PHENCYCLIDINE URINE SCREEN PRESUMTIVE POSITIVE (NEGATIVE)
== END 2019-02-21 09:27 | disposition left against medical advice (07) ==
LOC: ER 04:19
DX: R53.1 Weakness (principal); F12.90 Cannabis use, unspecified, uncomplicated; F17.210 Nicotine dependence, cigarettes, uncomplicated
CPT/HCPCS: 36415; 80053; 80305; 80320; 81003; 82962; 85025; 99283; J7030; G0480

== ENCOUNTER 2019-03-15 11:02 | Emergency (ER) | payer MEDICAID ==
[~2019-03-15] VITALS: Ht 172.7 cm; Wt 68.0 kg
[2019-03-15] MEDS ORDERED: SODIUM CHLORIDE 0.9% 1,000 ML IV ONE ×2 (11:46→13:27)
[2019-03-15] MEDS ORDERED: KETOROLAC 30MG/ML VIAL IV STA (11:46)
[2019-03-15] MEDS ORDERED: INSULIN REGULAR (HUMULIN R) UD 100 UNITS/ML SYR SUBCUT ONE ×2 (12:00→13:30)
[2019-03-15 12:09] LABS: BASOPHILS % 0.5 % (0.0-2.0); EOSINOPHILS % 0.7 % (0.0-5.0); HEMATOCRIT. 39.8 % (42.0-52.0); HEMOGLOBIN. 13.9 g/dL (14.0-18.0); LYMPHOCYTES % 18.9 % (20.0-50.0); MEAN CORPUSCULAR HEMOGLOBIN 32.8 pg (28.0-32.0); MEAN CORPUSCULAR VOLUME 93.8 fL (80.0-94.0); MEAN PLATELET VOLUME 7.2 fl (7.4-10.4); MONOCYTES % 7.8 % (2.0-8.0); NEUTROPHILS % 72.1 % (40.0-76.0); PLATELET 273 x1000/uL (130-400); RED BLOOD CELL COUNT 4.24 mill/uL (4.7-6.1); RED CELL DISTRIBUTION WIDTH 13.4 % (11.6-14.6)
[2019-03-15] MEDS ORDERED: INSULIN REGULAR (HUMULIN R) 300UNITS/3ML SUBCUT NR ×2 (12:15→14:00)
[2019-03-15 12:17] LABS: CHLORIDE 99 mEq/L (98-107)
[2019-03-15 12:55] LABS: CLARITY URINE CLEAR (CLEAR); COLOR URINE YELLOW (YELLOW); KETONES URINE NEGATIVE (NEGATIVE); LEUKOCYTE ESTERASE URINE NEGATIVE (NEGATIVE); NITRITE URINE NEGATIVE (NEGATIVE); OCCULT BLOOD URINE NEGATIVE (NEGATIVE); PROTEIN URINE 1+ (NEGATIVE); SPECIFIC GRAVITY URINE 1.039 (1.005-1.030); UROBILINOGEN URINE 0.2 E.U./dL (0.2-1.0)
[2019-03-15] MEDS ORDERED: INSULIN REGULAR (HUMULIN R) 300UNITS/3ML IV ONE (15:15)
[2019-03-15 18:15] VITALS: BP 116/83
== END 2019-03-15 18:37 | disposition home or self-care (01) ==
LOC: ER 11:02
DX: E11.65 Type 2 diabetes mellitus with hyperglycemia (principal); M79.18 Myalgia, other site; I10 Essential (primary) hypertension
CPT/HCPCS: 36415; 71045; 80053; 81003; 82010; 82962; 85025; 93005; 96361; 96372; 96374; 96375; 99284; J1815; J1885; J7030

== ENCOUNTER 2019-08-27 20:18 | Emergency (ER) | payer MEDICAID ==
[~2019-08-27] VITALS: Ht 177.8 cm; Wt 77.0 kg
[2019-08-27 20:23] VITALS: BP 133/91
[2019-08-27] MEDS ORDERED: SODIUM CHLORIDE 0.9% 1,000 ML IV ONE (20:45)
[2019-08-27 21:30] LABS: BASOPHILS % 0.9 % (0.0-2.0); EOSINOPHILS % 1.4 % (0.0-5.0); HEMATOCRIT. 41.9 % (42.0-52.0); LYMPHOCYTES % 29.8 % (20.0-50.0); MEAN CORPUSCULAR HEMOGLOBIN 30.6 pg (28.0-32.0); MEAN CORPUSCULAR VOLUME 91.6 fL (80.0-94.0); MEAN PLATELET VOLUME 7.2 fl (7.4-10.4); MONOCYTES % 8.5 % (2.0-8.0); NEUTROPHILS % 59.4 % (40.0-76.0); PLATELET 263 x1000/uL (130-400); RED BLOOD CELL COUNT 4.57 mill/uL (4.7-6.1); RED CELL DISTRIBUTION WIDTH 13.6 % (11.6-14.6)
[2019-08-27 21:38] LABS: CHLORIDE 108 mEq/L (98-107)
[2019-08-27 21:40] LABS: INR 1.1
[2019-08-27 21:42] LABS: ETHANOL BLOOD < 10 mg/dL
[2019-08-27 22:57] LABS: CLARITY URINE CLEAR (CLEAR); COLOR URINE YELLOW (YELLOW); KETONES URINE NEGATIVE (NEGATIVE); LEUKOCYTE ESTERASE URINE NEGATIVE (NEGATIVE); NITRITE URINE NEGATIVE (NEGATIVE); OCCULT BLOOD URINE NEGATIVE (NEGATIVE); PROTEIN URINE TRACE (NEGATIVE); SPECIFIC GRAVITY URINE 1.032 (1.005-1.030); UROBILINOGEN URINE 0.2 E.U./dL (0.2-1.0)
[2019-08-27 23:16] LABS: *AMPHETAMINES SCREEN URINE NEGATIVE (NEGATIVE); *BARBITURATES SCREEN URINE NEGATIVE (NEGATIVE)
[2019-08-27 23:18] LABS: *BENZODIAZEPINES SCREEN URINE NEGATIVE (NEGATIVE); *COCAINE SCREEN URINE NEGATIVE (NEGATIVE); CANNABINOID URINE SCREEN NEGATIVE (NEGATIVE); METHADONE URINE SCREEN NEGATIVE (NEGATIVE); OPIATES URINE SCREEN NEGATIVE (NEGATIVE); PHENCYCLIDINE URINE SCREEN PRESUMTIVE POSITIVE (NEGATIVE)
== END 2019-08-27 23:48 | disposition home or self-care (01) ==
LOC: ER 20:30
DX: R55 Syncope and collapse (principal); R41.82 Altered mental status, unspecified; R47.1 Dysarthria and anarthria; I10 Essential (primary) hypertension; E11.9 Type 2 diabetes mellitus without complications
CPT/HCPCS: 36415; 70450; 71045; 80053; 80305; 80307; 80320; 80329; 81003; 82140; 82962; 83690; 84484; 85025; 85610; 93005; 96360; 99284; J7030; Z7610; G0480

== ENCOUNTER 2019-10-22 19:34 | Emergency (ER) | payer MEDICAID ==
[~2019-10-22] VITALS: Ht 172.7 cm; Wt 79.0 kg
[2019-10-22 23:36] VITALS: BP 99/58
== END 2019-10-23 01:06 | disposition home or self-care (01) ==
LOC: ER 19:34
DX: E11.649 Type 2 diabetes mellitus with hypoglycemia without coma (principal); Z76.0 Encounter for issue of repeat prescription; Z79.4 Long term (current) use of insulin
CPT/HCPCS: 82962; 99283

== ENCOUNTER 2019-11-23 13:34 | Emergency (ER) | payer MEDICAID ==
[~2019-11-23] VITALS: Ht 180.3 cm; Wt 76.5 kg
[2019-11-23 13:48] VITALS: BP 155/76
== END 2019-11-23 15:57 | disposition home or self-care (01) ==
LOC: ER 13:34
DX: E11.9 Type 2 diabetes mellitus without complications (principal)
CPT/HCPCS: 99283

== ENCOUNTER 2019-12-28 08:02 | Emergency (ER) | payer MEDICAID ==
[~2019-12-28] VITALS: Ht 175.3 cm; Wt 72.0 kg
[2019-12-28] MEDS ORDERED: SODIUM CHLORIDE 0.9% 1000ML BAG (SEPSIS BOLUS) IV ONE (09:30)
[2019-12-28] MEDS ORDERED: INSULIN REGULAR (HUMULIN R) UD 100 UNITS/ML SYR IV ONE ×2 (09:30→12:45)
[2019-12-28 09:39] LABS: BASOPHILS % 0.3 % (0.0-2.0); EOSINOPHILS % 0.3 % (0.0-5.0); HEMATOCRIT. 44.9 % (42.0-52.0); HEMOGLOBIN. 14.6 g/dL (14.0-18.0); LYMPHOCYTES % 17.4 % (20.0-50.0); MEAN CORPUSCULAR HEMOGLOBIN 31.6 pg (28.0-32.0); MEAN CORPUSCULAR VOLUME 97.1 fL (80.0-94.0); MEAN PLATELET VOLUME 8.2 fl (7.4-10.4); MONOCYTES % 7.9 % (2.0-8.0); NEUTROPHILS % 74.1 % (40.0-76.0); PLATELET 264 x1000/uL (130-400); RED BLOOD CELL COUNT 4.63 mill/uL (4.7-6.1); RED CELL DISTRIBUTION WIDTH 13.6 % (11.6-14.6)
[2019-12-28 09:44] LABS: CHLORIDE 87 mEq/L (98-107)
[2019-12-28 09:57] LABS: BG BASE EXCESS -7.9 mmol/L (-2.0-2.0); BG CARBOXYHEMOGLOBIN 0.5 % (0.5-1.5); BG DEOXYHEMOGLOBIN 3.2 % (0.0-5.0); BG HCO3 ACT 17.5 mmol/L (22.0-26.0); BG METHEMOGLOBIN 0.1 % (0.0-1.5); BG OXYGEN SATURATION 96.8 % (92.0-98.5); BG OXYHEMOGLOBIN 96.2 % (94.0-97.0); BG PCO2 35.7 mmHg (35.0-45.0); BG PH 7.309 (7.350-7.450); BG SAMPLE SITE RIGHT RADIAL; BG VENT MODE ROOM AIR
[2019-12-28 10:02] LABS: CLARITY URINE CLEAR (CLEAR); COLOR URINE YELLOW (YELLOW); KETONES URINE 2+ (NEGATIVE); LEUKOCYTE ESTERASE URINE NEGATIVE (NEGATIVE); NITRITE URINE NEGATIVE (NEGATIVE); OCCULT BLOOD URINE NEGATIVE (NEGATIVE); PROTEIN URINE NEGATIVE (NEGATIVE); SPECIFIC GRAVITY URINE 1.034 (1.005-1.030); UROBILINOGEN URINE 0.2 E.U./dL (0.2-1.0)
[2019-12-28 10:04] LABS: PROTHROMBIN TIME 10.7 sec (9.6-11.0)
[2019-12-28] MEDS ORDERED: INSULIN REGULAR (HUMULIN R) 300UNITS/3ML IV NR (10:45)
[2019-12-28] MEDS ORDERED: INSULIN REGULAR (HUMULIN R) 300UNITS/3ML IV SCH (13:00)
[2019-12-28 13:47] VITALS: BP 101/62
[2020-01-01] MEDS ORDERED: INSU100I28 SQ (06:24)
== END 2019-12-28 14:21 | disposition left against medical advice (07) ==
LOC: ER 08:02 → CANBEDREQ 16:47
DX: E11.65 Type 2 diabetes mellitus with hyperglycemia (principal); E86.0 Dehydration; Z91.11 Patient's noncompliance with dietary regimen; Z91.14 Patient's other noncompliance with medication regimen; Z79.4 Long term (current) use of insulin
CPT/HCPCS: 36415; 36600; 71045; 80053; 81003; 82375; 82805; 82962; 83605; 84484; 85025; 85610; 93005; 96374; 96376; 99285; J1815; J7030

== ENCOUNTER 2020-01-11 18:36 | Emergency (ER) | payer MEDICAID ==
[~2020-01-11] VITALS: Ht 170.2 cm; Wt 76.0 kg
[2020-01-11 19:30] VITALS: BP 121/71
== END 2020-01-11 20:48 | disposition home or self-care (01) ==
LOC: ER 18:36
DX: F32.9 Major depressive disorder, single episode, unspecified (principal); X58.XXXA Exposure to other specified factors, initial encounter; Y93.89 Activity, other specified; E11.9 Type 2 diabetes mellitus without complications
CPT/HCPCS: 99283

== ENCOUNTER 2020-01-26 11:58 | Emergency (ER) | payer MEDICAID ==
[~2020-01-26] VITALS: Ht 172.7 cm; Wt 69.0 kg
[2020-01-26] MEDS ORDERED: SODIUM CHLORIDE 0.9% 1,000 ML IV ONE ×2 (12:20→15:00)
[2020-01-26 13:00] LABS: BASOPHILS % 0.5 % (0.0-2.0); EOSINOPHILS % 0.3 % (0.0-5.0); HEMATOCRIT. 38.3 % (42.0-52.0); HEMOGLOBIN. 13.3 g/dL (14.0-18.0); LYMPHOCYTES % 16.8 % (20.0-50.0); MEAN CORPUSCULAR HEMOGLOBIN 32.5 pg (28.0-32.0); MEAN CORPUSCULAR VOLUME 93.7 fL (80.0-94.0); MEAN PLATELET VOLUME 8.2 fl (7.4-10.4); MONOCYTES % 13.6 % (2.0-8.0); NEUTROPHILS % 68.8 % (40.0-76.0); PLATELET 237 x1000/uL (130-400); RED BLOOD CELL COUNT 4.09 mill/uL (4.7-6.1); RED CELL DISTRIBUTION WIDTH 13.6 % (11.6-14.6)
[2020-01-26 13:01] LABS: CHLORIDE 94 mEq/L (98-107)
[2020-01-26 13:05] LABS: *AMPHETAMINES SCREEN URINE NEGATIVE (NEGATIVE); *BARBITURATES SCREEN URINE NEGATIVE (NEGATIVE); *BENZODIAZEPINES SCREEN URINE NEGATIVE (NEGATIVE)
[2020-01-26 13:07] LABS: ETHANOL BLOOD < 10 mg/dL
[2020-01-26 13:09] LABS: *COCAINE SCREEN URINE NEGATIVE (NEGATIVE); METHADONE URINE SCREEN NEGATIVE (NEGATIVE); OPIATES URINE SCREEN NEGATIVE (NEGATIVE)
[2020-01-26 13:10] LABS: CANNABINOID URINE SCREEN NEGATIVE (NEGATIVE); PHENCYCLIDINE URINE SCREEN PRESUMTIVE POSITIVE (NEGATIVE)
[2020-01-26] MEDS ORDERED: SODIUM CHLORIDE 0.9% 2,000 ML IV SCH (13:30)
[2020-01-26] MEDS ORDERED: INSULIN REGULAR (HUMULIN R) 300UNITS/3ML IV SCH (13:45)
[2020-01-26] MEDS ORDERED: INSULIN REGULAR (HUMULIN R) UD 100 UNITS/ML SYR IV ONE (16:00)
[2020-01-26] MEDS ORDERED: INSULIN REGULAR (HUMULIN R) 300UNITS/3ML IV ONE (16:10)
[2020-01-26 17:24] VITALS: BP 128/69
== END 2020-01-26 17:26 | disposition home or self-care (01) ==
LOC: ER 12:11
DX: E10.65 Type 1 diabetes mellitus with hyperglycemia (principal); F16.10 Hallucinogen abuse, uncomplicated; Z88.0 Allergy status to penicillin
CPT/HCPCS: 36415; 80053; 80305; 80320; 82962; 85025; 93005; 96361; 96374; 96376; 99285; J1815; J7030; G0480

== ENCOUNTER 2020-03-02 05:04 | Emergency (ER) | payer MEDICAID ==
[~2020-03-02] VITALS: Ht 172.7 cm; Wt 82.0 kg
[2020-03-02 05:59] LABS: BASOPHILS % 0.4 % (0.0-2.0); EOSINOPHILS % 1.1 % (0.0-5.0); HEMATOCRIT. 40.2 % (42.0-52.0); HEMOGLOBIN. 13.8 g/dL (14.0-18.0); LYMPHOCYTES % 27.8 % (20.0-50.0); MEAN CORPUSCULAR HEMOGLOBIN 32.2 pg (28.0-32.0); MEAN CORPUSCULAR VOLUME 94.1 fL (80.0-94.0); MEAN PLATELET VOLUME 7.4 fl (7.4-10.4); MONOCYTES % 9.7 % (2.0-8.0); PLATELET 244 x1000/uL (130-400); RED BLOOD CELL COUNT 4.27 mill/uL (4.7-6.1); RED CELL DISTRIBUTION WIDTH 13.8 % (11.6-14.6)
[2020-03-02 06:05] LABS: CHLORIDE 101 mEq/L (98-107)
[2020-03-02 06:11] LABS: BETA HYDROXYBUTYRATE 0.3 mMol/L (0.0-0.3)
[2020-03-02] MEDS ORDERED: SODIUM CHLORIDE 0.9% 1,000 ML IV ONE (06:28)
[2020-03-02] MEDS ORDERED: INSULIN REGULAR (HUMULIN R) 300UNITS/3ML IV ONE (06:30)
[2020-03-02] MEDS ORDERED: INSULIN GLARGINE UD 100 UNITS/ML SYR SUBCUT ONE (07:45)
[2020-03-02 08:14] VITALS: BP 112/69
[2020-03-02 08:46] LABS: CLARITY URINE CLEAR (CLEAR); COLOR URINE YELLOW (YELLOW); KETONES URINE NEGATIVE (NEGATIVE); LEUKOCYTE ESTERASE URINE NEGATIVE (NEGATIVE); NITRITE URINE NEGATIVE (NEGATIVE); OCCULT BLOOD URINE NEGATIVE (NEGATIVE); PROTEIN URINE NEGATIVE (NEGATIVE); SPECIFIC GRAVITY URINE 1.028 (1.005-1.030); UROBILINOGEN URINE 0.2 E.U./dL (0.2-1.0)
== END 2020-03-02 08:20 | disposition home or self-care (01) ==
LOC: ER 05:04
DX: E11.65 Type 2 diabetes mellitus with hyperglycemia (principal); Z79.4 Long term (current) use of insulin
CPT/HCPCS: 36415; 80053; 81003; 82010; 82962; 85025; 93005; 96361; 96372; 96374; 99284; J1815; J7030

== ENCOUNTER 2020-03-16 10:53 | Emergency (ER) | payer MEDICAID ==
[~2020-03-16] VITALS: Ht 182.9 cm; Wt 81.0 kg
[2020-03-16] MEDS ORDERED: SODIUM CHLORIDE 0.9% 1,000 ML IV ONE (11:11)
[2020-03-16 11:21] VITALS: BP 110/78
[2020-03-16 11:28] LABS: BASOPHILS % 0.6 % (0.0-2.0); HEMATOCRIT. 37.8 % (42.0-52.0); LYMPHOCYTES % 27.6 % (20.0-50.0); MEAN CORPUSCULAR HEMOGLOBIN 32.1 pg (28.0-32.0); MEAN CORPUSCULAR VOLUME 93.2 fL (80.0-94.0); MEAN PLATELET VOLUME 7.1 fl (7.4-10.4); MONOCYTES % 7.9 % (2.0-8.0); NEUTROPHILS % 62.9 % (40.0-76.0); PLATELET 214 x1000/uL (130-400); RED BLOOD CELL COUNT 4.06 mill/uL (4.7-6.1); RED CELL DISTRIBUTION WIDTH 13.3 % (11.6-14.6)
[2020-03-16 11:43] LABS: CHLORIDE 106 mEq/L (98-107)
[2020-03-16 11:47] LABS: BG BASE EXCESS -1.3 mmol/L (-2.0-2.0); BG CARBOXYHEMOGLOBIN 1.9 % (0.5-1.5); BG DEOXYHEMOGLOBIN 2.7 % (0.0-5.0); BG FRACTION INSPIRED OXYGEN 21; BG HCO3 ACT 23.3 mmol/L (22.0-26.0); BG METHEMOGLOBIN 0.2 % (0.0-1.5); BG OXYGEN SATURATION 97.2 % (92.0-98.5); BG OXYHEMOGLOBIN 95.2 % (94.0-97.0); BG PCO2 38.4 mmHg (35.0-45.0); BG PO2 100.8 mmHg (75.0-100.0); BG SAMPLE SITE RIGHT RADIAL; BG TOTAL HEMOGLOBIN 13.5 g/dL (12.0-18.0); BG VENT MODE ROOM AIR
[2020-03-16 11:47] LABS: ETHANOL BLOOD < 10 mg/dL
[2020-03-16 11:51] LABS: BETA HYDROXYBUTYRATE 0.1 mMol/L (0.0-0.3)
[2020-03-16 11:58] LABS: CARBAMAZEPINE < 0.5 ug/mL (4-12); PHENOBARBITAL < 2.1 ug/mL (15.0-40.0); VALPROIC ACID < 3.0 ug/mL (50-100)
== END 2020-03-16 12:46 | disposition home or self-care (01) ==
LOC: ER 10:53
DX: E11.65 Type 2 diabetes mellitus with hyperglycemia (principal); G40.909 Epilepsy, unspecified, not intractable, without status epilepticus
CPT/HCPCS: 36415; 36600; 71045; 80053; 80156; 80165; 80184; 80185; 80320; 82010; 82375; 82805; 85025; 93005; 96360; 99284; J7030; G0480

== ENCOUNTER 2020-07-01 18:08 | Emergency (ER) | payer MEDICAID ==
[~2020-07-01] VITALS: Ht 170.2 cm; Wt 68.5 kg
[2020-07-01] MEDS ORDERED: SODIUM CHLORIDE 0.9% 1,000 ML IV ONE (21:00)
[2020-07-01 23:17] LABS: BASOPHILS % 0.8 % (0.0-2.0); EOSINOPHILS % 1.8 % (0.0-5.0); HEMATOCRIT. 40.6 % (42.0-52.0); LYMPHOCYTES % 37.5 % (20.0-50.0); MEAN CORPUSCULAR VOLUME 89.7 fL (80.0-94.0); NEUTROPHILS % 52.9 % (40.0-76.0); PLATELET 282 x1000/uL (130-400); RED BLOOD CELL COUNT 4.52 mill/uL (4.7-6.1); RED CELL DISTRIBUTION WIDTH 13.6 % (11.6-14.6)
[2020-07-01 23:18] LABS: CHLORIDE 103 mEq/L (98-107)
[2020-07-01 23:26] LABS: BETA HYDROXYBUTYRATE 0.1 mMol/L (0.0-0.3)
[2020-07-02] MEDS ORDERED: POTASSIUM CHLORIDE 20MEQ TABLET SR PO ONE (00:15)
[2020-07-02 00:53] VITALS: BP 106/66
== END 2020-07-02 00:54 | disposition home or self-care (01) ==
LOC: ER 18:08
DX: E87.6 Hypokalemia (principal); E11.9 Type 2 diabetes mellitus without complications; I10 Essential (primary) hypertension; J45.909 Unspecified asthma, uncomplicated; Z79.899 Other long term (current) drug therapy
CPT/HCPCS: 36415; 71045; 80053; 82010; 85025; 93005; 96360; 96361; 99285; J7030

== ENCOUNTER 2020-12-23 11:39 | Emergency (ER) | payer MEDICAID ==
[~2020-12-23] VITALS: Ht 167.6 cm; Wt 68.0 kg
[~2020-12-23 11:39] MED LIST changes: -INSU100I28 SQ; +INSU100V34 SQ
[2020-12-23] MEDS ORDERED: INSULIN REGULAR (HUMULIN R) 300UNITS/3ML VIAL SUBCUT ONE (12:45)
[2020-12-23] MEDS ORDERED: SODIUM CHLORIDE 0.9% 1,000 ML IV ONE ×2 (12:45→13:45)
[2020-12-23 13:14] LABS: BG BASE EXCESS 0.8 mmol/L (-2.0-2.0); BG CARBOXYHEMOGLOBIN 0.3 % (0.5-1.5); BG DEOXYHEMOGLOBIN 3.2 % (0.0-5.0); BG FRACTION INSPIRED OXYGEN 21; BG HCO3 ACT 25.3 mmol/L (22.0-26.0); BG METHEMOGLOBIN 0.1 % (0.0-1.5); BG OXYGEN SATURATION 96.8 % (92.0-98.5); BG OXYHEMOGLOBIN 96.4 % (94.0-97.0); BG PCO2 39.7 mmHg (35.0-45.0); BG PH 7.422 (7.350-7.450); BG PO2 93.4 mmHg (75.0-100.0); BG SAMPLE SITE LEFT RADIAL; BG TOTAL HEMOGLOBIN 10.1 g/dL (12.0-18.0); BG VENT MODE ROOM AIR
[2020-12-23 13:15] LABS: HEMATOCRIT. 32.9 % (42.0-52.0); MEAN CORPUSCULAR HEMOGLOBIN 31.6 pg (28.0-32.0); MEAN CORPUSCULAR VOLUME 94.4 fL (80.0-94.0); MEAN PLATELET VOLUME 6.8 fl (7.4-10.4); PLATELET 245 x1000/uL (130-400); RED BLOOD CELL COUNT 3.48 mill/uL (4.7-6.1); RED CELL DISTRIBUTION WIDTH 15.9 % (11.6-14.6)
[2020-12-23 13:21] LABS: CHLORIDE 107 mEq/L (98-107)
[2020-12-23 13:26] LABS: ETHANOL BLOOD < 10 mg/dL
[2020-12-23 13:28] LABS: BETA HYDROXYBUTYRATE 0.1 mMol/L (0.0-0.3)
[2020-12-23 14:00] VITALS: BP 131/86
[2020-12-23 14:30] LABS: PLATELET ESTIMATE NORMAL
== END 2020-12-23 16:14 | disposition home or self-care (01) ==
LOC: ER 12:27
DX: E11.65 Type 2 diabetes mellitus with hyperglycemia (principal); I10 Essential (primary) hypertension; F16.10 Hallucinogen abuse, uncomplicated; F17.200 Nicotine dependence, unspecified, uncomplicated; Z91.14 Patient's other noncompliance with medication regimen; Z88.0 Allergy status to penicillin; Z79.84 Long term (current) use of oral hypoglycemic drugs; J45.909 Unspecified asthma, uncomplicated; E86.0 Dehydration
CPT/HCPCS: 36415; 36600; 80053; 80320; 82010; 82375; 82805; 82962; 85025; 93005; 96360; 96361; 96372; 99284; J1815; J7030; Z7610; G0480

== ENCOUNTER 2021-03-13 08:46 | Inpatient (IN) | payer MEDICAID ==
[~2021-03-13] VITALS: Ht 172.7 cm; Wt 41.7 kg
[2021-03-13 09:57] LABS: HEMATOCRIT. 45.6 % (42.0-52.0); HEMOGLOBIN. 13.5 g/dL (14.0-18.0); MEAN CORPUSCULAR HEMOGLOBIN 31.9 pg (28.0-32.0); MEAN CORPUSCULAR VOLUME 107.4 fL (80.0-94.0); MEAN PLATELET VOLUME 7.4 fl (7.4-10.4); PLATELET 402 x1000/uL (130-400); RED BLOOD CELL COUNT 4.24 mill/uL (4.7-6.1); RED CELL DISTRIBUTION WIDTH 16.1 % (11.6-14.6)
[2021-03-13 10:06] LABS: CHLORIDE 92 mEq/L (98-107)
[2021-03-13 10:11] LABS: ETHANOL BLOOD < 10 mg/dL
[2021-03-13 10:12] LABS: PHOSPHORUS 7.1 mg/dL (2.5-4.9)
[2021-03-13 10:28] LABS: BETA HYDROXYBUTYRATE > 10.0 mMol/L (0.0-0.3)
[2021-03-13 10:41] LABS: CLARITY URINE CLEAR (CLEAR); COLOR URINE YELLOW (YELLOW); KETONES URINE 4+ (NEGATIVE); LEUKOCYTE ESTERASE URINE NEGATIVE (NEGATIVE); NITRITE URINE NEGATIVE (NEGATIVE); OCCULT BLOOD URINE TRACE (NEGATIVE); PROTEIN URINE 2+ (NEGATIVE); SPECIFIC GRAVITY URINE 1.022 (1.005-1.030); UROBILINOGEN URINE 0.2 E.U./dL (0.2-1.0)
[2021-03-13] MEDS ORDERED: LACTATED RINGERS IV NR (11:00)
[2021-03-13 11:11] LABS: PLATELET ESTIMATE NORMAL
[2021-03-13] MEDS ORDERED: INSULIN REGULAR (HUMULIN R) 300UNITS/3ML VIAL IV NR (11:24)
[2021-03-13] MEDS: INSULIN REGULAR (DRIP) 100 UNITS in SODIUM CHLORIDE 0.9% 99 ML IV NR ×2 (12:01→18:38)
[2021-03-13 12:35] LABS: CHLORIDE 97 mEq/L (98-107)
[2021-03-13] MEDS ORDERED: SODIUM BICARBONATE 8.4% 1 MEQ/ML 50ML SYR IV NR (14:30)
[2021-03-13] MEDS ORDERED: SODIUM CHLORIDE 0.9% 1,000 ML IV SCH (14:30)
[2021-03-13 14:46] LABS: CHLORIDE 99 mEq/L (98-107)
[2021-03-13] MEDS ORDERED: CLONIDINE 0.1MG TABLET PO PRN ×2 (15:00→19:30)
[2021-03-13] MEDS ORDERED: ACETAMINOPHEN 650MG/20.3ML UDC GT PRN (19:30)
[2021-03-13] MEDS ORDERED: MAGNESIUM/ALUMINUM HYDROXIDE/SIMETHICONE 30ML UDC PO PRN (19:30)
[2021-03-13] MEDS ORDERED: ACETAMINOPHEN 650MG SUPP PR PRN ×2 (19:30)
[2021-03-13] MEDS ORDERED: HYDROCODONE/ACETAMINOPHEN 5/325MG TABLET PO PRN (19:30)
[2021-03-13] MEDS ORDERED: NA PHOS,M-B/NA PHOS,DI-BA ENEMA 118ML PR PRN (19:30)
[2021-03-13] MEDS ORDERED: ONDANSETRON HCL 4MG/2ML INJ IV PRN (19:30)
[2021-03-13] MEDS ORDERED: NALOXONE HCL 0.4MG/ML VIAL IV PRN (19:45)
[2021-03-13] MEDS ORDERED: SODIUM BICARBONATE 100 MEQ in SODIUM CHLORIDE 0.45% 900 ML IV SCH (20:30)
[2021-03-13] MEDS: ENOXAPARIN 40MG/0.4ML SYR SUBCUT SCH (21:00)
[2021-03-13] MEDS: DEXT 5%/0.9% NACL 1,000 ML IV SCH (22:40)
[2021-03-13 23:49] LABS: *AMPHETAMINES SCREEN URINE NEGATIVE (NEGATIVE); *BARBITURATES SCREEN URINE NEGATIVE (NEGATIVE)
[2021-03-13 23:50] LABS: *BENZODIAZEPINES SCREEN URINE NEGATIVE (NEGATIVE); *COCAINE SCREEN URINE NEGATIVE (NEGATIVE); CANNABINOID URINE SCREEN NEGATIVE (NEGATIVE); METHADONE URINE SCREEN NEGATIVE (NEGATIVE); OPIATES URINE SCREEN NEGATIVE (NEGATIVE); PHENCYCLIDINE URINE SCREEN PRESUMTIVE POSITIVE (NEGATIVE)
[2021-03-14] MEDS: DEXT 5%/0.9% NACL 1,000 ML IV SCH (09:48)
[2021-03-14 12:05] LABS: CHLORIDE 109 mEq/L (98-107)
[2021-03-14 12:17] LABS: LDL CHOLESTEROL 135 mg/dL (5-100)
[2021-03-14 12:20] LABS: HDL CHOLESTEROL 70 mg/dL (40-59)
[2021-03-14 13:04] LABS: PHOSPHORUS 0.6 mg/dL (2.5-4.9)
[2021-03-14] MEDS ORDERED: DEXTROSE 50% WATER 50ML SYRINGE IV PRN (13:15)
[2021-03-14] MEDS ORDERED: SODIUM PHOS,M-BASIC-D-BASIC 15 MM in DEXT 5% WATER 245 ML IV NR (14:00)
[2021-03-14 14:30] VITALS: BP 112/72
[2021-03-14] MEDS: DEXT 5%/0.9% NACL KCL 20MEQ/L 1,000 ML IV SCH (16:16)
[2021-03-14] MEDS: INSULIN GLARGINE UD 100 UNITS/ML SYR SUBCUT SCH ×2 (16:38→21:23)
[2021-03-14] MEDS: BLOOD SUGAR DIAGNOSTIC STRIP TEST SCH ×2 (18:01→20:53)
[2021-03-14] MEDS: INSULIN LISPRO (MEDIUM DOSE) 100 UNITS/ML SUBCUT SCH ×2 (18:44→21:25)
[2021-03-14] MEDS ORDERED: POTASSIUM PHOS,M-BASIC-D-BASIC 20 MMOL in DEXT 5% WATER 243.3333 ML IV NR (19:00)
[2021-03-14 20:00] VITALS: BP 120/91
[2021-03-14] MEDS: ENOXAPARIN 40MG/0.4ML SYR SUBCUT SCH (20:55)
[2021-03-14 21:31] LABS: CHLORIDE 103 mEq/L (98-107)
[2021-03-15] VITALS: BP 118/77
[2021-03-15 04:00] VITALS: BP 136/92
[2021-03-15] MEDS: DEXT 5%/0.9% NACL KCL 20MEQ/L 1,000 ML IV SCH (05:06)
[2021-03-15] MEDS: BLOOD SUGAR DIAGNOSTIC STRIP TEST SCH (06:36)
[2021-03-15] MEDS: INSULIN LISPRO (MEDIUM DOSE) 100 UNITS/ML SUBCUT SCH (07:27)
[2021-03-15 08:00] VITALS: BP 126/94
[2021-03-15] MEDS ORDERED: INSLIS SUBCUT (10:52)
[2021-03-15] MEDS ORDERED: LANTUSUD SUBCUT (10:52)
[2021-03-15 12:09] VITALS: BP 126/94
[2021-03-25] MEDS ORDERED: SODIUM BICARBONATE 100 MEQ in SODIUM CHLORIDE 0.45% 1,000 ML IV SCH (09:00)
== END 2021-03-15 12:35 | disposition home or self-care (01) | DRG 420 ==
LOC: ER 08:46 → MICUSO 15:36 → CVICU 03-14 07:13 → MICUSO 03-14 08:42 → 6EST 03-14 13:58
PROVIDERS: ADMIT Family Medicine; ATTEND Family Medicine
DX: E10.10 Type 1 diabetes mellitus with ketoacidosis without coma (principal); N17.9 Acute kidney failure, unspecified; E44.0 Moderate protein-calorie malnutrition; E83.39 Other disorders of phosphorus metabolism; E87.2 Acidosis; E78.5 Hyperlipidemia, unspecified; E87.1 Hypo-osmolality and hyponatremia; E87.5 Hyperkalemia; I10 Essential (primary) hypertension; I25.10 Atherosclerotic heart disease of native coronary artery without angina pectoris; J45.909 Unspecified asthma, uncomplicated; R19.7 Diarrhea, unspecified; E87.6 Hypokalemia; Z79.4 Long term (current) use of insulin; Z82.49 Family history of ischemic heart disease and other diseases of the circulatory system; Z86.73 Personal history of transient ischemic attack (TIA), and cerebral infarction without residual deficits; Z87.01 Personal history of pneumonia (recurrent); Z91.14 Patient's other noncompliance with medication regimen; Z91.19 Patient's noncompliance with other medical treatment and regimen; Z68.1 Body mass index [BMI] 19.9 or less, adult
CPT/HCPCS: 36415; 71045; 80048; 80053; 80061; 80076; 80305; 80320; 81003; 82010; 82962; 83036; 83735; 84100; 84484; 85025; 93005; 99291; J1650; J1815; J3490; J7042; J7050; J7060; G0480

== ENCOUNTER 2021-03-24 10:53 | Emergency (ER) | payer MEDICAID ==
[~2021-03-24] VITALS: Ht 182.9 cm; Wt 73.0 kg
[~2021-03-24 10:53] MED LIST changes: +INSLIS SUBCUT; +LANTUSUD SUBCUT
[2021-03-24] MEDS ORDERED: LACTATED RINGERS 1,000 ML IV SCH ×2 (11:15→12:30)
[2021-03-24 11:37] LABS: BASOPHILS % 0.7 % (0.0-2.0); EOSINOPHILS % 0.5 % (0.0-5.0); HEMATOCRIT. 36.5 % (42.0-52.0); HEMOGLOBIN. 12.3 g/dL (14.0-18.0); LYMPHOCYTES % 30.2 % (20.0-50.0); MEAN CORPUSCULAR HEMOGLOBIN 31.9 pg (28.0-32.0); MEAN CORPUSCULAR VOLUME 94.4 fL (80.0-94.0); MEAN PLATELET VOLUME 6.7 fl (7.4-10.4); MONOCYTES % 11.8 % (2.0-8.0); NEUTROPHILS % 56.8 % (40.0-76.0); PLATELET 429 x1000/uL (130-400); RED BLOOD CELL COUNT 3.86 mill/uL (4.7-6.1); RED CELL DISTRIBUTION WIDTH 14.5 % (11.6-14.6)
[2021-03-24 11:43] LABS: CHLORIDE 96 mEq/L (98-107)
[2021-03-24 11:46] LABS: CLARITY URINE CLEAR (CLEAR); COLOR URINE YELLOW (YELLOW); KETONES URINE NEGATIVE (NEGATIVE); LEUKOCYTE ESTERASE URINE NEGATIVE (NEGATIVE); NITRITE URINE NEGATIVE (NEGATIVE); OCCULT BLOOD URINE NEGATIVE (NEGATIVE); PROTEIN URINE 2+ (NEGATIVE); UROBILINOGEN URINE 0.2 E.U./dL (0.2-1.0)
[2021-03-24 11:52] LABS: BETA HYDROXYBUTYRATE 0.1 mMol/L (0.0-0.3)
[2021-03-24] MEDS ORDERED: INSULIN REGULAR (HUMULIN R) 300UNITS/3ML VIAL IV NR (12:15)
[2021-03-24] MEDS ORDERED: INSULIN REGULAR (HUMULIN R) 300UNITS/3ML VIAL IV ONE (13:45)
[2021-03-24 16:51] VITALS: BP 134/92
== END 2021-03-24 16:55 | disposition home or self-care (01) ==
LOC: ER 11:36
DX: E11.65 Type 2 diabetes mellitus with hyperglycemia (principal); Z79.4 Long term (current) use of insulin; E86.0 Dehydration
CPT/HCPCS: 36415; 80053; 81003; 82010; 82962; 85025; 93005; 96361; 96374; 96376; 99285; J1815